=== PATIENT | male | born 1995 | race Caucasian/White ===

== ENCOUNTER 2017-10-15 19:50 | Emergency (ER) | payer BC ==
[2017-10-15 20:17] VITALS: BP 122/75; RESP 20; TEMP 99; O2SAT 98
[2017-10-15] MEDS ORDERED: guaiFENesin 100 mg/5 ml Syrup UD PO STA (20:43)
[2017-10-15] MEDS ORDERED: guaiFENesin 200 mg/10 ml Syrup UD ONE (20:54)
--- NOTE | 2017-10-15 21:05 | C.PDOC ---
History Of Present Illness 22 yo male c/o fever, cough, and congestion since last night. Takes Tylenol with transient improvement - last does at 3pm. No SOB, chest pain, abdominal pain, headache, or neck pain. Time Seen by Provider: 10/15/17 20:21 Chief Complaint (Nursing): Flu-like Symptoms History Per: Patient History/Exam Limitations: no limitations Onset/Duration Of Symptoms: Days (yesterday) Current Symptoms Are (Timing): Still Present Associated Symptoms: Fever, Cough, Nasal Congestion Past Medical History Vital Signs: Last Vital Signs Temp 99 F 10/15/17 20:13 Pulse 94 H 10/15/17 20:13 Resp 20 10/15/17 20:13 BP 122/75 10/15/17 20:13 Pulse Ox 98 10/15/17 21:05 - [facility] Procedures APPLICATION OF SPLINT (05/18/13) CLOSURE SKIN & SUBCUTANEOUS NEC (04/04/14) FAMILY THERAPY (12/22/13) INDIVID PSYCHOTHERAP NEC (12/22/13) OTHER GROUP THERAPY (12/22/13) Family History: States: Unknown Family Hx - Social History Hx Tobacco Use: Yes Hx Alcohol Use: No Hx Substance Use: No - Immunization History Hx Tetanus Toxoid Vaccination: No Hx Influenza Vaccination: No Hx Pneumococcal Vaccination: No Review Of Systems Except As Marked, All Systems Reviewed And Found Negative. Constitutional: Positive for: Fever ENT: Positive for: Nose Congestion Respiratory: Positive for: Cough Physical Exam - Physical Exam Appears: Well, Non-toxic, No Acute Distress Skin: Normal Color, Warm, Dry Head: Atraumatic, Normacephalic Eye(s): bilateral: Normal Inspection, PERRL, EOMI Ear(s): Bilateral: Normal Nose: Other ((+) nasal congestion) Oral Mucosa: Moist Throat: Normal, No Erythema, No Exudate Neck: Normal, Normal ROM, Supple Chest: Symmetrical Cardiovascular: Rhythm Regular Respiratory: Normal Breath Sounds, No Accessory Muscle Use Gastrointestinal/Abdominal: Normal Exam, Soft, No Tenderness Back: Normal Inspection Extremity: Normal ROM Neurological/Psych: Oriented x3, Normal Speech ED Course And Treatment O2 Sat by Pulse Oximetry: 98 Progress Note: Influenza (+). Tamiflu given. Instructed symtpomatic treatment and follow up with PMD in 1-2 days. Disposition - Disposition Disposition: HOME/ ROUTINE Disposition Time: 21:03 Condition: STABLE Additional Instructions: Follow up with your primary medical doctor or clinic in 2-5 days for further evaluation. Take medications as prescribed. Return to the emergency department at any time if symptoms persist or worsen. Prescriptions: Guaifen/Dextromethorphan/PE [Mucinex Fast-Max Congest-Cough] 1 each PO Q6 #20 tablet Ibuprofen [Motrin] 600 mg PO Q6 PRN #20 tab PRN Reason: Pain, Mild (1-3) Oseltamivir Phosphate [Tamiflu] 75 mg PO BID #10 capsule Instructions: Influenza (ED) Forms: Contently (Chinese) - Clinical Impression Clinical Impression: Influenza
[2017-10-15 21:13] VITALS: PULSE 87
--- NOTE | 2017-10-16 08:29 | RAD ---
HISTORY: Fever. COMPARISON: No prior. TECHNIQUE: Chest PA and lateral FINDINGS: LUNGS: No active pulmonary disease. PLEURA: No significant pleural effusion identified. No pneumothorax apparent. CARDIOVASCULAR: Normal. OSSEOUS STRUCTURES: No significant abnormalities. VISUALIZED UPPER ABDOMEN: Normal. OTHER FINDINGS: None. IMPRESSION: No active disease.
== END 2017-10-15 21:11 | disposition home or self-care (01) ==
LOC: C.ER 19:50
DX: J11.1 Influenza due to unidentified influenza virus with other respiratory manifestations (principal)